=== PATIENT | male | born 1975 | race Hispanic/Latino ===

== ENCOUNTER 2018-09-16 19:48 | Emergency (ER) | payer SELFPAY ==
[2018-09-16] MEDS ORDERED: Ketorolac Tromethamine 30 MG/ML VIAL ONE (20:04)
[2018-09-16 20:25] LABS: #Eosinphils 0.2 thou/uL (0.0-0.7); #Lymphocytes 1.6 thou/uL (1.20-3.40); #Monocytes 0.7 thou/uL (0.11-0.59); #Neutrophils 4.2 thou/uL (1.40-6.50); %Basophils 0.7 % (0.0-1.0); %Eosinophils 2.6 % (0.0-10.0); %Lymphocytes 23.5 % (21.0-51.0); %Monocytes 10.3 % (0.0-10.0); %Neutrophils 62.9 % (42.0-75.0); Hemoglobin 14.2 g/dL (14.0-18.0); Mean Corpuscular HGB CONC 33.8 g/dL (32.0-36.0); Mean Corpuscular Hemoglobin 29.9 pg (27.0-31.0); Mean Corpuscular Volume 88.5 fL (78.0-98.0); Mean Platelet Volume 8.4 fL (7.4-10.4); Platelet Count 146 thou/uL (130-400); RBC Distribution Width 11.5 % (11.5-14.5); Red Blood Cell (RBC) Count 4.73 mill/uL (4.70-6.10); White Blood Cell (WBC) Count 6.7 thou/uL (4.8-10.8)
[2018-09-16 20:45] LABS: ALT (SGPT) 40 U/L (8-55); AST (SGOT) 25 U/L (5-34); Alkaline Phosphatase 48 U/L (40-150); Anion Gap 11 mmol/L (10-20); BUN (Urea Nitrogen) 13 mg/dL (8.9-20.6); Bilirubin, Total 0.9 mg/dL (0.2-1.2); CK (CPK) 145 U/L (30-200); Calc. Creatinine Clearance 0 mL/min (70-130); Calcium 9.1 mg/dL (7.8-10.44); Carbon Dioxide 23 mmol/L (22-29); Chloride 108 mmol/L (98-107); Estimated GFR-MDRD Greater than 90; Globulin 2.6 g/dL (2.4-3.5); Glucose 136 mg/dL (70-105); Protein, Total 6.6 g/dL (6.0-8.3); Sodium 138 mmol/L (136-145)
--- NOTE | 2018-09-16 21:31 | RAD ---
PORTABLE AP CHEST X-RAY: 09/16/18 HISTORY: Chest pain. COMPARISON: None available. FINDINGS: The cardiac silhouette and pulmonary vasculature are within normal limits. The lungs are clear. Edgar us structures appear intact. IMPRESSION: No acute cardiopulmonary process. POS: [facility]
--- NOTE | 2018-09-18 12:26 | EKG ---
Test Reason : Blood Pressure : / mmHG Vent. Rate : 087 BPM Atrial Rate : 087 BPM P-R Int : 174 ms QRS Dur : 106 ms QT Int : 364 ms P-R-T Axes : 051 -47 019 degrees QTc Int : 438 ms Normal sinus rhythm Left axis deviation Abnormal ECG Confirmed by NEELIMA LATHAM, RACHEL Cheema ([id number]), sports editor EDY SETH ([id number]) on 09/18/2018 12:26:00 PM Referred By: Confirmed By:RACHEL ORTEZ MD
== END 2018-09-16 21:06 | disposition home or self-care (01) ==
LOC: ERS 19:48
DX: M94.0 Chondrocostal junction syndrome [Tietze] (principal)
CPT/HCPCS: 36415; 71045; 80053; 82550; 84484; 85025; 93005; 96374; J1885